=== PATIENT | male | born 1995 | race Caucasian/White ===

== ENCOUNTER → 2024-10-28 10:01 | Outpatient (REF) | payer MEDICARE, MEDICAID, SELFPAY | LOC: HWCARD 10:01 | PROVIDERS: ATTENDING PHYSICIAN Registered Nurse; FAMILY PHYSICIAN Internal Medicine | DX: R94.31 Abnormal electrocardiogram [ECG] [EKG] (principal) | CPT/HCPCS: 93005 ==

== ENCOUNTER 2024-12-20 15:20 | Emergency (ER) | payer MEDICARE, OTHER, SELFPAY ==
[2024-12-20 15:21] VITALS: BMI 32.3
[2024-12-20 15:34] VITALS: BP 161/107
[2024-12-20 15:57] LABS: COVID-19 Antigen Negative (Negative)
--- NOTE | 2024-12-20 16:55 | ED.GENMED ---
History of Present Illness
General
Chief Complaint: Cold/Flu/URI Symptoms
Source: patient
Exam Limitations: none
Time Seen by Provider: 12/20/24 16:44
History of Present Illness
History of Present Illness:
28yoM with a history of hyperlipidemia and tobacco use (smokes 1ppd) presenting from [facility] for evaluation of flu-like symptoms. Symptoms began yesterday. He reports sore throat, congestion, cough, and fevers. He also feels somewhat
short of breath. He has not taken anything OTC for his symptoms. He denies any chest pain, abdominal pain, vomiting, diarrhea, dysuria.
Phy Exam
General Physical Exam
General Presentation: well appearing and no apparent distress
General age: appears stated age
General Skin: warm and dry
General Habitus: normal
General Mental: alert
ENT Exam
ENT Exam: TM's normal, normocephalic and other (Nasal congestion noted. Tonsillitis noted bilaterally. Uvula appears midline although exam is limited as Mallampati score is 3-4. Tolerating oral secretions. )
Eye Exam
Eye Exam: conjunctiva normal
Cardiovascular Exam
Cardiovascular Exam: regular rate/rhythm
Pulmonary Exam
Pulmonary Exam: lungs clear, no respiratory distress, no rales, no crackles and no rhonchi
Gastrointestinal Exam
Gastrointestinal Exam: non tender, soft and non distended
Neurological Exam
Neurological Exam: alert
Carlos Coma Scale
Eye Opening: Spontaneous
Verbal Response: Oriented
Motor Response: Obeys Commands
GCS Total Score: 15
Skin Exam
Skin Exam: normal color and warm/dry
Psychiatric Exam
Psychiatric Exam: normal mood/affect
Sepsis
Sepsis Screening
Sepsis Assessment: Sepsis Ruled Out
Sepsis Screen
Sepsis Screen: Sepsis Ruled Out
Date: 12/20/24
Time: 20:45
Course
Orders/Labs/Results
Orders:
Orders
12/20/24 15:37
COVID-19 Antigen Urgent
Source: Nasal Swab
Influenza A+B Rapid Molecular Urgent
[facility]ASTA Source: Nasal Swab
Specimen Description:
12/20/24 16:54
CT Neck With Iv Contrast Urgent
Comment:
Reason For Exam: Tonsillitis, r/o abscess
0.9% Sodium Chloride 1000 ml [Nss] 1,000 ml IV BOLUS
Acetaminophen [Tylenol] 1,000 mg PO NOW STA
Ketorolac [Toradol] 15 mg IV NOW STA
CR Chest - 2 Views Urgent
Comment:
Reason For Exam: cough, fever
12/20/24 17:13
Complete Blood Count/With Diff Urgent
Comprehensive Metabolic Panel Urgent
Monotest Urgent
Rapid Strep Group A Urgent
YOKASTA Source: Throat/Pharynx
Specimen Description:
Date Specimen was Collected: 12/20/24
Time Specimen was Collected: 17:05
12/20/24 19:02
Dexamethasone [Decadron] 10 mg PO NOW STA
Abnormal Lab Results
12/20/24
17:13
WBC 12.4 H 10^3/uL
(4.8-10.8)
MCH 31.7 H pg
(27.0-31.0)
Abs Immat Gran (auto) 0.1 H 10^3/uL
(0-0.05)
Absolute Neuts (auto) 9.8 H 10^3/uL
(1.4-6.5)
Absolute Lymphs (auto) 0.9 L 10^3/uL
(1.2-3.4)
Absolute Monos (auto) 1.6 H 10^3/uL
(0.1-0.6)
Neutrophils % 79.0 H %
(42.2-75.2)
Lymphocytes % 7.1 L %
(20.5-51.1)
Monocytes % 12.9 H %
(1.7-9.3)
Chloride 96 L mmol/L
(98-107)
Carbon Dioxide 32 H mmol/L
(22-30)
Glucose 103 H mg/dl
(70-99)
12/20/24 17:13
12/20/24 17:13
Vital Signs
Initial and Last Documented VS:
Initial Vital Signs
Temp Pulse Resp BP Pulse Ox
100.9 F H 96 16 161/107 99
12/20/24 15:34 12/20/24 15:34 12/20/24 15:34 12/20/24 15:34 12/20/24 15:34
Last Documented Vital Signs
Temp Pulse Resp BP Pulse Ox
98.3 F 98 22 166/97 97
12/20/24 19:31 12/20/24 18:00 12/20/24 18:00 12/20/24 18:00 12/20/24 19:31
MDM/Problems Addressed
Differential Diagnosis Includes:
28yoM here with flu-like symptoms x 1 day. C/o cough, congestion, and sore throat. He is febrile to 100.9 on arrival. He is well appearing in no distress. Nasal congestion and tonsillar enlargement noted on exam. Differential diagnosis includes but
is not limited to: viral illness, strep pharyngitis, pneumonia, [employer]
Initial ED plan: COVID/flu swabs sent in triage are negative. Will check CBC, CMP, strep testing, monospot, CXR, and CT soft tissue neck. IV Toradol, Tylenol, and fluid bolus for symptoms.
*Critical Care Note
Total Time (30-74mins, 75-104mins- exclusive of procedures): Not Applicable
Update Note
Update Note:
Labs reveal a mild leukocytosis with a white count of 12.4. Remainder of labs unremarkable. Strep and mono testing negative. Chest x-ray is clear without infiltrates. No evidence of peritonsillar abscess on neck CT. On reassessment, patient is
feeling much better and fever resolved. Suspect viral illness. Will give dose of Decadron for symptoms. Supportive care discussed. Advised close follow-up with PCP and strict ED return precautions discussed. Patient in agreement with plan and
was discharged in stable condition.
ED Attending Note
-
Portions of this chart may have been created with voice recognition software.� Occasional wrong word or��sound alike� substitutions may have occurred due to the inherent limitations of voice recognition software.
Discharge Plan
Departure
Patient Disposition: Home (Routine Discharge)
Date of Disposition: 12/20/24
Time of Disposition: 19:02
Patient with high blood pressure during this ER visit?: Yes
Discharge Problem:
Acute viral syndrome
Instructions: Viral Upper Respiratory Infection, Adult (DC)
Activity Restrictions/Additional Instructions:
Drink plenty of fluids and rest. Take Tylenol and ibuprofen as needed for fevers.
Please follow-up with your family doctor. Return to the ER with any new or worsening symptoms.
Interventions
Interventions:
*Risk Screen - Suicide Last Done: 12/20/24 15:35
*General Assessment Last Done: 12/20/24 17:25
*Neglect/Abuse Screening Last Done: 12/20/24 15:35
ED- Fall Risk Assessment Last Done: 12/20/24 17:25
*Nursing Disposition Last Done: 12/20/24 19:37
ED- Pulmonary Assessment Last Done: 12/20/24 17:25
Discharge Date and Time
Discharge Date/Time: 12/20/24 19:31
Print Language: YORUBA
[2024-12-20] MEDS: TORADOL 15 MG IV (17:11)
[2024-12-20] MEDS: TYLENOL 1000 MG PO (17:11)
[2024-12-20] MEDS: NSS 1000 IV (17:11)
[2024-12-20 17:15] VITALS: BP 157/79
[2024-12-20 17:29] LABS: % Basophils 0.2 % (0-2); % Eosinophils 0.3 % (0-6); % Immature Granulocytes 0.5 % (0-0.5); % Lymphocytes 7.1 % (20.5-51.1); % Monocytes 12.9 % (1.7-9.3); Absolute Immature Granulocytes 0.1 10^3/uL (0-0.05); Absolute Lymphocytes 0.9 10^3/uL (1.2-3.4); Absolute Monocytes 1.6 10^3/uL (0.1-0.6); Absolute Neutrophils 9.8 10^3/uL (1.4-6.5); Hematocrit 42.5 % (39.0-52.0); Hemoglobin 15.3 g/dL (13.0-18.0); Mean Corpuscular Hgb 31.7 pg (27.0-31.0); Mean Corpuscular Volume 88.2 fL (80.0-94.0); Mean Platelet Volume 8.9 fL (7.4-10.4); Nucleated Red Blood Cells % 0 % (-); Platelet Count 232 10^3/uL (130-400); Red Blood Cell Count 4.82 10^6/uL (4.70-6.10); Red Cell Dist. Width 11.7 % (11.5-14.5); White Blood Cell Count 12.4 10^3/uL (4.8-10.8)
[2024-12-20 17:41] LABS: ALT (SGPT) 33 U/L (0-50); AST (SGOT) 31 U/L (17-59); Albumin 4.6 g/dl (3.5-5.0); Alkaline Phosphatase 63 U/L (38-126); Blood Urea Nitrogen 12 mg/dl (9-20); Calcium 9.9 mg/dl (8.4-10.2); Carbon Dioxide 32 mmol/L (22-30); Chloride 96 mmol/L (98-107); Estimated Creatinine Clearance 114 ml/min; Glucose 103 mg/dl (70-99); Potassium 4.3 mmol/L (3.5-5.1); Sodium 135 mmol/L (135-145); Total Bilirubin 0.7 mg/dl (0.2-1.3); Total Protein 7.9 g/dl (6.3-8.2); eGFR > 60.00
[2024-12-20 17:52] LABS: Monotest Negative (Negative)
[2024-12-20 18:00] VITALS: BP 166/97
[2024-12-20] MEDS: DECADRON 10 MG PO (19:20)
== END 2024-12-20 19:31 | disposition home or self-care (01) ==
LOC: EMR 15:20
PROVIDERS: Emergency Medicine; Physician Assistant; EMERGENCY PHYSICIAN Emergency Medicine
DX: B34.9 Viral infection, unspecified (principal); E78.00 Pure hypercholesterolemia, unspecified; F17.210 Nicotine dependence, cigarettes, uncomplicated
CPT/HCPCS: 99284; 96374; 96361; 70491; 71046; 80053; 85025; 86308; 87070; 87502; 87811; 87880; Q9967

== ENCOUNTER 2025-08-05 19:55 | Emergency (ER) | payer MEDICARE, SELFPAY ==
[2025-08-05 20:01] VITALS: BP 149/104
--- NOTE | 2025-08-05 22:27 | ED.SKININJ ---
HPI-Injury
General
Chief Complaint: Skin Problem
Source: patient
Time Seen by Provider: 08/05/25 22:04
Nursing documentation reviewed up to this point in time: agreed with
History of Present Illness-Injury
Initial Injury comments:
Note:
CHIEF COMPLAINT(S)
Head pain due to a bump on the head.
HISTORY OF PRESENT ILLNESS
The patient is a 29-year-old male who presented with a bump on his head. The patient reported that the bump started two days ago and initially attributed it to a bite. Upon examination, it appeared to be a bug bite, possibly from a mosquito or
similar insect. The patient expressed that the area felt painful and achy, describing a sensation of pressure on the skin. He reported feeling warm but denied having a fever or chills during the examination. No other complaints such as vomiting or
chest pain were mentioned.
SOCIAL HISTORY
The patient reports smoking.
PHYSICAL EXAM
General: Alert, no acute distress.
Skin: Warm, dry, noted red bump on the head consistent with a bug bite.
Head: Normocephalic, atraumatic except for the described bump on the head consistent with a bug bite.
Neck: Supple, trachea midline.
Eye, Ears, nose, mouth and throat: Oral mucosa moist.
Cardiovascular: Normal peripheral perfusion, No edema.
Respiratory: Respirations are non-labored.
Gastrointestinal: Abdomen nondistended.
Back: Normal range of motion, Normal alignment.
Musculoskeletal: Normal ROM, normal strength.
Neurological: Alert and oriented to person, place, time, and situation, No focal neurological deficit observed.
Psychiatric: Cooperative, appropriate mood & affect.
PLAN
The plan is to apply an antibiotic cream, such as bacitracin, to the affected area to prevent infection and reduce redness from scratching. The bump does not appear to be infected at this time.
DIFFERENTIAL DIAGNOSIS
The Differential Diagnosis includes, in no particular order and is not limited to:
1. Insect bite
2. Contact dermatitis
3. Folliculitis
4. Cellulitis
5. Abscess
6. Seborrheic dermatitis
7. Acne
8. Urticaria
9. Hematoma following trauma
10. Allergic reaction rash
Disposition:
SUMMARY OF ENCOUNTER
The patient, a 29-year-old male, presented with a bug bite on the top of his head. Upon examination in the emergency department, the bug bite was not infected, and no signs of cellulitis were present. There was no stinger or tick found. The patient
denied experiencing fever, chills, nausea, or vomiting. The physical exam was otherwise normal. The plan is to apply an antibiotic cream, specifically bacitracin, to prevent infection and manage symptoms.
PLAN
Application of bacitracin cream on the affected area to prevent infection and manage symptoms. The bug bite appears to be uncomplicated at this time.
PATIENT EDUCATION AND COUNSELING
The patient was informed that the bug bite is not infected and advised on the proper application of bacitracin cream to prevent potential infection.
MEDICATION RECONCILIATION
Bacitracin will be applied to the affected area as an antibiotic cream.
MEDICAL DECISION MAKING
-Complexity of Data Reviewed: Chronic conditions affecting care; the differential diagnosis includes insect bite, contact dermatitis, folliculitis, cellulitis, abscess, seborrheic dermatitis, acne, urticaria, hematoma following trauma, and allergic
reaction rash.
DIAGNOSIS
Insect bite on the head, unspecified site (ICD-10: S00.83XA).
Course
Vital Signs
Initial and Last Documented VS:
Initial Vital Signs
Temp Pulse Resp BP Pulse Ox
98.8 F 92 16 149/104 98
08/05/25 20:08/05/25 20:01 08/05/25 20:01 08/05/25 20:01 08/05/25 20:01
Last Documented Vital Signs
Temp Pulse Resp BP Pulse Ox
98.8 F 92 16 149/104 98
08/05/25 20:01 08/05/25 20:01 08/05/25 20:01 08/05/25 20:01 08/05/25 20:01
*Pulse Oximetry
SaO2: 98
Oxygen Mode of Delivery: Room air
Patient hypoxic: no
*Critical Care Note
Total Time (30-74mins, 75-104mins- exclusive of procedures): Not Applicable
ED Attending Note
-
Portions of this chart may have been created with voice recognition software.� Occasional wrong word or��sound alike� substitutions may have occurred due to the inherent limitations of voice recognition software.
Discharge Plan
Departure
Patient Disposition: Home (Routine Discharge)
Date of Disposition: 08/05/25
Time of Disposition: 22:27
Patient with high blood pressure during this ER visit?: Yes
Discharge Problem:
Bug bite
Instructions: Wound Care (DC), Insect bites and stings - ED (DC), BLOOD PRESSURE
Referrals:
Ronald Leung MD [Family Provider]
Activity Restrictions/Additional Instructions:
Thank You for choosing [facility].
It was a pleasure meeting you and taking part in your care. We hope for your continued healing and wellness.
Please read discharge instructions in their entirety. However, they are for general education and may not describe your exact diagnosis at discharge. Information on your ER visit and medical conditions were discussed with you along with appropriate
follow up information...
If indicated, please take your medications as instructed and indicated on discharge paperwork.
Please schedule a follow up appointment as directed. Call to schedule an appointment
Please return to the emergency department with ANY change in, persisting, or worsening of symptoms. If any of your symptoms do not improve, or persist, or become more severe within 6-12 hours, please return to the emergency department for further
care.
Please return to the emergency department if you develop a headache, neck pain/stiffness, fever greater than 100.4F, chest pain, shortness of breath, persistent nausea, vomiting, slurred speech, difficulty walking, numbness/tingling, weakness, signs
of infection or any other symptoms that are worrisome to you.
If you have any questions or concerns please do not hesitate to call the Hospital at
Interventions
Interventions:
*Risk Screen - Suicide Last Done: 08/05/25 20:01
*Neglect/Abuse Screening Last Done: 08/05/25 20:03
Discharge Date and Time
Print Language: BENINESE
== END 2025-08-05 22:47 | disposition home or self-care (01) ==
LOC: EMR 19:55
PROVIDERS: EMERGENCY PHYSICIAN Student in an Organized Health Care Education/Training Program; FAMILY PHYSICIAN Internal Medicine
DX: S00.86XA Insect bite (nonvenomous) of other part of head, initial encounter (principal); W57.XXXA Bitten or stung by nonvenomous insect and other nonvenomous arthropods, initial encounter; F17.200 Nicotine dependence, unspecified, uncomplicated
CPT/HCPCS: 99282

== ENCOUNTER → 2025-08-18 10:24 | Outpatient (REF) | payer MEDICARE, SELFPAY | LOC: HWCARD 10:24 | PROVIDERS: ATTENDING PHYSICIAN Registered Nurse | DX: R94.31 Abnormal electrocardiogram [ECG] [EKG] (principal) | CPT/HCPCS: 93005 ==